=== PATIENT | female | born 1965 | race Caucasian/White ===

== ENCOUNTER 2022-01-10 00:02 | Emergency (ER) | payer MEDICAID ==
[~2022-01-10] VITALS: Ht 162.6 cm; Wt 90.7 kg
--- NOTE | 2022-01-10 00:04 | NUR ---
PT [facility]. TAKEN TO BED 10
[2022-01-10 00:18] VITALS: BP 161/76
--- NOTE | 2022-01-10 00:18 | NUR ---
Dr. Ivory examining patient.
[2022-01-10] MEDS ORDERED: ONDANSETRON 4 MG/2 ML VIAL ONE (00:30)
[2022-01-10] MEDS ORDERED: MORPHINE SULFATE 4 MG/ML SYR ONE (00:30)
[2022-01-10] MEDS ORDERED: MORPHINE SULFATE 4 MG/ML SYR IVP ONE (00:35)
[2022-01-10] MEDS ORDERED: ONDANSETRON 4 MG/2 ML VIAL IVP ONE (00:35)
[2022-01-10 00:36] LABS: BASOPHILS % (AUTO) 0.6 % (0.0-2.0); EOSINOPHILS # (AUTO) 0.2 K/uL (0-0.4); EOSINOPHILS % (AUTO) 2.7 % (0.0-4.0); HEMATOCRIT 33.9 % (36-48); LYMPHOCYTES # (AUTO) 1.1 K/uL (2.5-16.5); LYMPHOCYTES % (AUTO) 18.4 % (20.5-51.1); MEAN CORPUSCULAR HEMOGLOBIN 34 pg (27-31); MEAN CORPUSCULAR HGB CONC 35 g/dL (33-37); MEAN CORPUSCULAR VOLUME 96.7 fL (80-94); MONOCYTES # (AUTO) 0.4 K/uL (0.8-1.0); MONOCYTES % (AUTO) 6.7 % (1.7-9.3); NEUTROPHILS # (AUTO) 4.2 K/uL (1.8-7.7); NEUTROPHILS % (AUTO) 71.6 % (42.2-75.2); PLATELET COUNT (AUTO) 174 K/uL (140-450); RED CELL DISTRIBUTION WIDTH 18.2 % (11.6-13.7); WHITE BLOOD COUNT (AUTO) 5.8 K/uL (4.8-10.8)
--- NOTE | 2022-01-10 00:36 | NUR ---
received pt from EMS and placed to bed 10. pt currently a/o x 4, gcs 15. able to move all extremities freely. pt is a 57 year old female with hx of htn, dm, hld, CHF, ESRD on HD TTHS for cc of acute onset of midsternal chest pain and SOB since 2300 last night. pt seen to be hypoxic at 89% on RA and placed on 2lpm n/c with sats improved to 97%. received 3-0.4 SL nitro and 324 [employer]. currently reports pain to radiate towards LUE and Lower L rib at this time. 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
--- NOTE | 2022-01-10 00:38 | NUR ---
jose swab collected and sent to lab.
[2022-01-10 00:52] LABS: ALBUMIN 3.4 g/dL (3.4-5.0); ANION GAP 15.8 (8-16); CARBON DIOXIDE 27.4 mmol/L (21-32); TOTAL BILIRUBIN 0.6 mg/dL (0.0-1.0)
[2022-01-10 00:57] LABS: CREATININE 6.1 mg/dL (0.6-1.3); POTASSIUM 6.2 mmol/L (3.5-5.1)
--- NOTE | 2022-01-10 00:58 | NUR ---
received phone call [facility] for K [facility]. Dr. Ivory made aware.
[2022-01-10] MEDS ORDERED: ALBUTEROL 0.083% 2.5 MG/3 ML NEBU INH ONE (01:00)
[2022-01-10] MEDS ORDERED: CALCIUM CHLORIDE 10% 100 MG/ML SYR IVP ONE (01:00)
[2022-01-10] MEDS ORDERED: SODIUM BICARBONATE 8.4% PFS 50 MEQ/50 ML SYR IVP ONE (01:05)
--- NOTE | 2022-01-10 01:17 | NUR ---
called [facility] and gave report to Nette RAMIREZ from ER. pt will be transported under the care of Dr. Jerez ER to ER for STEMI. # for report was [phone]
[2022-01-10 01:42] VITALS: BP 148/75
--- NOTE | 2022-01-10 02:29 | NUR ---
TRANSPORT AT BEDSIDE
--- NOTE | 2022-01-10 02:33 | NUR ---
[facility] arrived. report given to Paula Medic.
== END 2022-01-10 02:33 | disposition short-term general hospital (02) ==
LOC: MED 00:02
DX: I44.7 Left bundle-branch block, unspecified (principal); Z20.822 Contact with and (suspected) exposure to COVID-19; R07.9 Chest pain, unspecified; E11.9 Type 2 diabetes mellitus without complications; E87.5 Hyperkalemia; I10 Essential (primary) hypertension; Z79.4 Long term (current) use of insulin; Z79.899 Other long term (current) drug therapy
CPT/HCPCS: 36415; 71045; 80053; 83880; 84484; 85025; 87426; 93005; 94644; 96374; 96375; 99285; J2270; J2405; J7613; Q0092